=== PATIENT | male | born 1955 | race Hispanic/Latino ===

== ENCOUNTER → 2018-11-02 | Outpatient (CLI) | payer OTHER ==
[~2018-11-02] VITALS: Ht 188 cm; Wt 93.3 kg
[~2018-11-02] MED LIST: LACTATED RINGERS 1000ML 1,000 ML IV SCH
[2018-11-02 14:46] VITALS: BP 139/66
--- NOTE | 2018-11-02 14:53 | NUR ---
EKG ABNORMAL EKG REPORTED TO DR. DIANA, PER HIM NEEDS MEDICAL CLEARANCE TO PROCEED WITH SURGERY, ATTEMPTED TO CALL DR. OVIEDO OFFICE, OFFICE CLOSE FOR HOLIDAYS, WILL ATTEMPT TO CALL BACK ON NOV 04 2017WHEN OFFICE OPEN, DENICE OR CHLORINE CELLS OPERATOR NOTIFIED ALSO OF ANESTHESIA REQUEST FOR MEDICAL CLEARANCE. NOTIFIED PATIENT HE WILL TRY SEE PCP PRIOR TO SURGERY TO TRY TO OBTAIN CLEARANCE.
[2018-11-02 14:54] LABS: BASOPHILS % (AUTO) 0.7 % (0.0-5.0); EOSINOPHILS % (AUTO) 2.5 % (0.0-8.0); HEMATOCRIT 43.1 % (42-54); LYMPHOCYTES % (AUTO) 20.1 % (21.0-51.0); MEAN CORPUSCULAR HEMOGLOBIN 31.2 pg (27.0-33.0); MEAN CORPUSCULAR HGB CONC 33.8 g/dL (32.0-36.0); MEAN CORPUSCULAR VOLUME 92.5 fL (79-99); MONOCYTES % (AUTO) 5.8 % (3.0-13.0); NEUTROPHILS % (AUTO) 70.9 % (40.0-77.0); PLATELET COUNT (AUTO) 309 K/uL (130-400); RED BLOOD CELL COUNT(AUTO) 4.66 MIL/uL (4.50-6.20); RED CELL DISTRIBUTION WIDTH 12.6 % (11.0-15.5); WHITE BLOOD COUNT (AUTO) 8.4 K/uL (4.8-10.8)
[2018-11-02 15:03] LABS: POTASSIUM 4.4 mmol/L (3.5-5.1)
[2018-11-02 15:10] LABS: APPEARANCE,URINE Clear (CLEAR); BILIRUBIN,URINE Negative (NEGATIVE); COLOR,URINE Yellow (YELLOW); GLUCOSE, URINE (UA) Negative (NEGATIVE); KETONES,URINE Negative (NEGATIVE); LEUKOCYTE ESTERASE ,URINE Negative (NEGATIVE); NITRATE,URINE Negative (NEGATIVE); OCCULT BLOOD,URINE Negative (NEGATIVE); PROTEIN,URINE Negative (NEGATIVE)
== END ==
LOC: DAH 10:00 → EDSTATUS 14:30 → EDSEX 11-05 14:30
PROVIDERS: ATTEND Surgery
DX: Z01.818 Encounter for other preprocedural examination (principal)
CPT/HCPCS: 36415; 80048; 81003; 85025; 93005

== ENCOUNTER → 2018-11-25 | Outpatient (CLI) | payer OTHER | END | disposition home or self-care (01) | LOC: SHCH 13:17 | PROVIDERS: ATTEND Internal Medicine Cardiovascular Disease | DX: R01.1 Cardiac murmur, unspecified (principal) | CPT/HCPCS: 93306 ==

== ENCOUNTER 2019-01-14 07:56 | Day surgery (SDC) | payer OTHER ==
[2019-01-12 14:02] VITALS: BP 119/61
[2019-01-12 14:05] LABS: BASOPHILS % (AUTO) 0.8 % (0.0-5.0); EOSINOPHILS % (AUTO) 1.9 % (0.0-8.0); HEMATOCRIT 41.1 % (42-54); LYMPHOCYTES % (AUTO) 18.4 % (21.0-51.0); MEAN CORPUSCULAR HEMOGLOBIN 31.4 pg (27.0-33.0); MEAN CORPUSCULAR HGB CONC 33.7 g/dL (32.0-36.0); MEAN CORPUSCULAR VOLUME 93.3 fL (79-99); MONOCYTES % (AUTO) 6.9 % (3.0-13.0); PLATELET COUNT (AUTO) 317 K/uL (130-400); RED CELL DISTRIBUTION WIDTH 12.7 % (11.0-15.5); WHITE BLOOD COUNT (AUTO) 6.1 K/uL (4.8-10.8)
[2019-01-12 14:13] LABS: APPEARANCE,URINE Clear (CLEAR); BILIRUBIN,URINE Negative (NEGATIVE); COLOR,URINE Yellow (YELLOW); GLUCOSE, URINE (UA) Negative (NEGATIVE); KETONES,URINE Negative (NEGATIVE); LEUKOCYTE ESTERASE ,URINE Negative (NEGATIVE); NITRATE,URINE Negative (NEGATIVE); OCCULT BLOOD,URINE Negative (NEGATIVE); PH,URINE 5.5 (5.0-8.0); PROTEIN,URINE Negative (NEGATIVE)
[~2019-01-14] VITALS: Ht 188 cm; Wt 90.3 kg
[2019-01-14] VITALS (14 sets, daily range): BP systolic 111–126; BP diastolic 57–76
[2019-01-14] MEDS ORDERED: LACTATED RINGERS 1000ML 1,000 ML IV ONE (08:12)
[2019-01-14 08:38] LABS: CREATININE 1.1 mg/dL (0.5-1.5); POTASSIUM 4.2 mmol/L (3.5-5.1)
[2019-01-14] MEDS ORDERED: ROCURONIUM 10MG/1ML SYR 10 MG/ML ML ONE (09:15)
[2019-01-14] MEDS ORDERED: PROPOFOL 10 MG/ML 20ML VIAL IV ONE (09:15)
[2019-01-14] MEDS ORDERED: LIDOCAINE PF 2% 5ML ABBOJECT ONE (09:15)
[2019-01-14] MEDS ORDERED: MIDAZOLAM HCL 1 MG/ML 2ML VIAL ONE (09:15)
[2019-01-14] MEDS ORDERED: FENTANYL CITRATE PF 50 MCG/1 ML 2ML VIAL ONE (09:16)
[2019-01-14] MEDS ORDERED: BUPIVACAINE/PF 0.25% 30ML VIAL IJ ONE (09:52)
[2019-01-14] MEDS ORDERED: GLYCOPYRROLATE 1 MG/5 ML SYRINGE ONE (09:57)
[2019-01-14] MEDS ORDERED: NEOSTIGMINE 5MG/5ML SYR IV ONE (09:57)
[2019-01-14] MEDS ORDERED: ONDANSETRON HCL 4 MG/2 ML VIAL ONE (09:59)
[2019-01-14] MEDS ORDERED: DEXAMETHASONE SOD PHOSPHATE 4 MG/ML 1ML VIAL ONE (10:00)
[2019-01-14] MEDS ORDERED: MEPERIDINE-PF 25 MG/ML SYG ONE ×2 (10:27→10:43)
--- NOTE | 2019-01-14 11:25 | NUR ---
ASSESSMENT RECEIVED PT FROM Ozzy MELCHOR RN. DRSG TO MID ABDOMEN DRY AND INTACT. NO BLEEDING, OOZING NOTED TO SITE. Abd binder IN PLACE. AT BEDSIDE.
--- NOTE | 2019-01-14 12:15 | NUR ---
DISCHARGE ORAL AND WRITTEN DISCHARGE INSTRUCTIONS GIVEN TO PTS AND PT ALONG WITH PRESCRIPTION FOR TYLENOL WITH CODEINE. ABD BINDER IN PLACE. DRSG TO ABD SOFT TO TOUCH. NO BLEEDING, OOZING NOTED TO SITE.
== END 2019-01-14 12:30 | disposition home or self-care (01) ==
LOC: DAH 07:56
PROVIDERS: ATTEND Surgery
DX: K43.2 Incisional hernia without obstruction or gangrene (principal); Z98.890 Other specified postprocedural states; Z85.038 Personal history of other malignant neoplasm of large intestine; Z79.899 Other long term (current) drug therapy; I10 Essential (primary) hypertension; R01.1 Cardiac murmur, unspecified
CPT/HCPCS: 36415 ×2; 49560; 49568; 80048; 81003; 85025; A4450; A4452; A4606; C1781; J1100; J2001; J2175 ×2; J2250; J2405; J2704; J2710; J3010; J3490 ×2; J7120 ×2